=== PATIENT | male | born 1940 | race American Indian/Alaskan Native ===

== ENCOUNTER 2019-08-29 16:08 | Emergency (ER) | payer BC, MEDICARE ==
--- NOTE | 2019-08-29 16:45 | Emergency Department Report ---
ED Neuro Deficit HPI - General Chief Complaint: Neuro Symptoms/Deficit Stated Complaint: POSS STROKE Time Seen by Provider: 08/29/19 16:14 Source: patient Mode of arrival: Ambulatory Limitations: No Limitations - History of Present Illness Initial Comments: [facility] Date of Service: 08/29/2019 16:09:48 Impression: Right Frias's palsy.. The differential diagnosis would be a right [place] stroke although less likely Comments/Sign-Out: 78-year-old male with past medical history significant for seizures and hypertension. He was last known normal when he went to bed at about 11:30 PM last night. When he woke up he realized that his right face was droopy. He had trouble rinsing his mouth as he was drooling. He also had trouble closing the right eye. He did not have any weakness numbness visual deficits or speech problems. There is no change in the taste or hearing. No history of any trauma to the head neck and no history of any recent cough cold of fever. No travel abroad. He denies having any tinnitus or hearing loss. CAT scan of the head is negative. NIH stroke scale is three for the left unilateral facial deficit on the right. He is not a TPA candidate as is outside the window also his symptoms are not suggestive of a stroke. The differential diagnosis would include right Frias's palsy which is more likely and stroke which is less likely. There are no signs of large vessel occlusion to ask for advanced imaging.He cannot have a brain MRI because he has a metal plate in his head from prior trauma. Metrics: Last Known Well: 08/28/2019 23:30:00 [facility] Notification Time: 08/29/2019 16:09:13 Arrival Time: 08/29/2019 16:08:00 Stamp Time: 08/29/2019 16:09:48 Time First Login Attempt: 08/29/2019 16:14:14 Video Start Time: 08/29/2019 16:14:14 Symptoms: Right facial droop NIHSS Start Assessment Time: 08/29/2019 16:26:45 Patient is not a candidate for tPA. Patient was not deemed candidate for tPA thrombolytics because of Last Well Known Above 4.5 Hours. Video End Time: 08/29/2019 16:33:40 CT head showed no acute hemorrhage or acute core infarct. Clinical Presentation is not Suggestive of Large Vessel Occlusive Disease ED Physician notified of diagnostic impression and management plan on 08/29/2019 16:38:50 Our recommendations are outlined below. Recommendations: Activate Stroke Protocol Admission/Order Set Stroke/Telemetry Floor Neuro Checks Bedside Swallow Eval DVT Prophylaxis IV Fluids, Normal Saline Head of Bed Below 30 Degrees Euglycemia and Avoid Hyperthermia (PRN Acetaminophen) Initiate Aspirin 81 MG Daily Acyclovir for 10 days and Medrol Dosepak for one week taper Recommended Scan: Carotid Dopplers Echocardiogram - Transthoracic Echocardiogram Lipid Panel to Be Obtained, if Not Done in the Last 30 Days Therapies: Physical Therapy, Occupational Therapy, Speech Therapy Assessment When Applicable Dysphaghia Screen: Swallow Evaluation, Bedside NPO Until Swallow Evaluation DVT prophylaxis: Choice of Primary Team Disposition: Neurology Follow Up Recommended Sign Out: Discussed with Emergency Department Provider History of Present Illness: Patient is a 78 year old Male. Patient was brought by private transportation with symptoms of Right facial droop 78-year-old male with past medical history significant for seizures and hyperte nsion. He was last known normal when he went to bed at about 11:30 PM last night. When he woke up he realized that his right face was droopy. He had trouble rinsing his mouth as he was drooling. He also had trouble closing the right eye. He did not have any weakness numbness visual deficits or speech problems. There is no change in the taste or hearing. No history of any trauma to the head neck and no history of any recent cough cold of fever. No travel abroad. He denies having any tinnitus or hearing loss. CAT scan of the head is negative. NIH stroke scale is three for the left unilateral facial deficit on the right. He is not a TPA candidate as is outside the window also his symptoms are not suggestive of a stroke. The differential diagnosis would include right Frias's palsy which is more likely and stroke which is less likely. There are no signs of large vessel occlusion to ask for advanced imaging.He cannot have a brain MRI because he has a metal plate in his head from prior trauma. CT head showed no acute hemorrhage or acute core infarct. Last seen normal was beyond 4.5 hours of presentation. There is no history of hemorrhagic complications or intracranial hemorrhage. There is no history of Recent Anticoagulants. There is no history of recent major surgery. There is no history of recent stroke. Examination: 1A: Level of Consciousness - Alert; keenly responsive + 0 1B: Ask Month and Age - Both Questions Right + 0 1C: Blink Eyes & Squeeze Hands - Performs Both Tasks + 0 2: Test Horizontal Extraocular Movements - Normal + 0 3: Test Visual Yuan - No Visual Loss + 0 4: Test Facial Palsy (Use Grimace if Obtunded) - Unilateral Complete paralysis (upper/lower face) + 3 5A: Test Left Arm Motor Drift - No Drift for 10 Seconds + 0 5B: Test Right Arm Motor Drift - No Drift for 10 Seconds + 0 6A: Test Left Leg Motor Drift - No Drift for 5 Seconds + 0 6B: Test Right Leg Motor Drift - No Drift for 5 Seconds + 0 7: Test Limb Ataxia (FNF/Heel-Mayes) - No Ataxia + 0 8: Test Sensation - Normal; No sensory loss + 0 9: Test Language/Aphasia - Normal; No aphasia + 0 10: Test Dysarthria - Normal + 0 11: Test Extinction/Inattention - No abnormality + 0 NIHSS Score: 3 Patient was informed the Neurology Consult would happen via TeleHealth consult by way of interactive audio and video telecommunications and consented to receiving care in this manner. Due to the immediate potential for life-threatening deterioration due to underlying acute neurologic illness, I spent 35 minutes providing critical care. This time includes time for face to face visit via telemedicine, review of medical records, imaging studies and discussion of findings with providers, the patient and/or family. Dr Surya Stewart [facility] Case [id number] - Related Data Home Medications: Home Medications Medication Instructions Recorded Confirmed Last Taken Atorvastatin [Lipitor] 40 mg PO QHS 08/21/13 08/21/13 08/20/13 Lisinopril [Zestril] 40 mg PO DAILY 08/21/13 08/21/13 08/21/13 Losartan [Cozaar] 25 mg PO QDAY 08/21/13 08/21/13 08/21/13 Tamsulosin [Flomax] 0.4 mg PO QDAY 08/21/13 08/21/13 08/21/13 amLODIPine 5 mg PO DAILY 08/21/13 08/21/13 08/21/13 carvediloL [Coreg] 3.125 mg PO QAM 08/21/13 08/21/13 08/21/13 Previous Rx's Medication Instructions Recorded Last Taken Type levETIRAcetam [Keppra TAB] 1,500 mg PO BID 30 Days tablet 08/25/13 Unknown Rx Allergies/Adverse Reactions: Allergies Allergy/AdvReac Type Severity Reaction Status Date / Time morphine AdvReac Nausea Verified 08/21/13 18:35 ED Review of Systems ROS: Stated complaint: POSS STROKE Other details as noted in HPI ED Past Medical Hx - Past Medical History Previous Medical History?: Yes Hx Hypertension: Yes Additional medical history: brain aneurysm repair 1996 - Surgical History Past Surgical History?: Yes Additional Surgical History: prostate and hernia - Social History Smoking Status: Never Smoker Substance Use Type: None - Medications Home Medications: Home Medications Medication Instructions Recorded Confirmed Last Taken Type Atorvastatin [Lipitor] 40 mg PO QHS 08/21/13 08/21/13 08/20/13 History Lisinopril [Zestril] 40 mg PO DAILY 08/21/13 08/21/13 08/21/13 History Losartan [Cozaar] 25 mg PO QDAY 08/21/13 08/21/13 08/21/13 History Tamsulosin [Flomax] 0.4 mg PO QDAY 08/21/13 08/21/13 08/21/13 History amLODIPine 5 mg PO DAILY 08/21/13 08/21/13 08/21/13 History carvediloL [Coreg] 3.125 mg PO QAM 08/21/13 08/21/13 08/21/13 History levETIRAcetam [Keppra TAB] 1,500 mg PO BID 30 Days tablet 08/25/13 Unknown Rx ED Neuro Physical Exam - General Limitations: No Limitations Suspected Stroke: No (bells palsy more likely) - Lab Data Lab Results 08/29/19 Range/Units 16:24 POC Glucose 103 (70-105) Critical care attestation.: If time is entered above; I have spent that time in minutes in the direct care of this critically ill patient, excluding procedure time. ED Disposition Clinical Impression: Right-sided Frias's palsy Disposition: DC-09 OP ADMIT IP TO THIS HOSP Is pt being admited?: Yes Condition: Stable
--- NOTE | 2019-08-29 16:45 | Emergency Department Report ---
HPI - General Chief Complaint: Neuro Symptoms/Deficit Time Seen by Provider: 08/29/19 16:14 - HPI HPI: 78-year-old -Japanese male presents to the emergency department from home, through triage, with with the concern for possible stroke. The patient says that he woke up this morning and noticed that he was having trouble with "the muscles on the right side of my face." He was brushing his teeth and had some difficulty spitting out the remnants. He noticed that "my eye and my mouth were drooping." He thought that this would change when he put his dentures in but it did not. He has some complaints of mild numbness to the right side. 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 He has not taken anything for his symptoms prior to presentation today. ED Past Medical Hx - Past Medical History Previous Medical History?: Yes Hx Hypertension: Yes Additional medical history: brain aneurysm repair 1996 - Surgical History Past Surgical History?: Yes Additional Surgical History: prostate and hernia - Social History Smoking Status: Never Smoker Substance Use Type: None - Medications Home Medications: Home Medications Medication Instructions Recorded Confirmed Last Taken Type Atorvastatin [Lipitor] 40 mg PO QHS 08/21/13 08/21/13 08/20/13 History Lisinopril [Zestril] 40 mg PO DAILY 08/21/13 08/21/13 08/21/13 History Losartan [Cozaar] 25 mg PO QDAY 08/21/13 08/21/13 08/21/13 History Tamsulosin [Flomax] 0.4 mg PO QDAY 08/21/13 08/21/13 08/21/13 History amLODIPine 5 mg PO DAILY 08/21/13 08/21/13 08/21/13 History carvediloL [Coreg] 3.125 mg PO QAM 08/21/13 08/21/13 08/21/13 History levETIRAcetam [Keppra TAB] 1,500 mg PO BID 30 Days tablet 08/25/13 Unknown Rx Prednisone [predniSONE 10 mg 10 mg PO .TAPER #1 tab.ds.pk 08/29/19 Unknown Rx (6-Day Pack, 21 Tabs)] Valacyclovir HCl [Valtrex] 1,000 mg PO TID #21 tablet 08/29/19 Unknown Rx ED Review of Systems ROS: Stated complaint: POSS STROKE Other details as noted in HPI Comment: All other systems reviewed and negative Constitutional: denies: chills, fever Eyes: other (Eye Droop). denies: eye pain, vision change ENT: denies: ear pain Respiratory: denies: cough, shortness of breath Cardiovascular: denies: chest pain, palpitations Gastrointestinal: denies: abdominal pain, vomiting Genitourinary: denies: dysuria, discharge Musculoskeletal: denies: back pain, arthralgia Skin: denies: rash, lesions Neurological: weakness (facial weakness). denies: headache Physical Exam - Physical Exam Physical Exam: GENERAL: The patient is well-developed well-nourished. HENT: Normocephalic. Atraumatic. Patient has moist mucous membranes. EYES: Extraocular motions are intact. Pupils equal reactive to light bilaterally. NECK: Supple. Trachea is midline. CHEST/LUNGS: Clear to auscultation. There is no respiratory distress noted. HEART/CARDIOVASCULAR: Regular. There is no tachycardia. There is no murmur. ABDOMEN: Abdomen is soft, nontender. Patient has normal bowel sounds. There is no abdominal distention. SKIN: Skin is warm and dry. NEURO: The patient is awake, alert, and oriented. The patient is cooperative. There is right-sided facial paresis. He is unable to close his right eyelid. Normal speech. No pronator drift or dysmetria. MUSCULOSKELETAL: There is no tenderness or deformity. There is no limitation range of motion of the extremities. ED Course - Consultations Consultation #1: 08/29/19 20:00 I spoke with the occupational safety and health manager on-call, Dr. Lima, regarding the patient's elevated troponins while being asymptomatic for any chest pain or shortness of breath. We also discussed the patient's EKG. Dr. Lima is in agreement with the patient being safe for discharge home with outpatient follow-up. Consultation #2: The patient was seen by the telemedicine neurologist, Dr. Stewart, immediately after the patient returned from CT scan of his head. She gave him an NIH stroke scale of 3 but has a very high suspicion that the patient has Frias's palsy. 08/29/19 21:52 ED Medical Decision Making - Lab Data Result diagrams: 08/29/19 16:35 08/29/19 16:35 - EKG Data -: EKG Interpreted by Me EKG shows normal: sinus rhythm, axis (Left axis deviation), intervals (Prolonged NC interval), QRS complexes (Right bundle branch block, left anterior fascicular block), ST-T waves Rate: normal - EKG Data When compared to previous EKG there are: previous EKG unavailable Interpretation: other (Sinus rhythm at 73 bpm, prolonged NC interval, right bundle branch block, left anterior fascicular block) - Radiology Data Radiology results: report reviewed CT HEAD WITHOUT CONTRAST INDICATION / CLINICAL INFORMATION: MAIN: CODE STROKE PT neuro deficits <6hrs or sx present upon awakening RT SIDE DROOP . TECHNIQUE: All CT scans at this location are performed using CT dose reduction for ALARA by means of automated exposure control. 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 A single surgical clip is observed near the superior margin of the dorsum sellae. This is unchanged. HEMORRHAGE: No evidence of intracranial hemorrhage or extra-axial fluid collection. EXTRA- AXIAL SPACES: Cortical sulci and sylvian fissures are mildly enlarged reflecting a degree of parenchymal volume loss which is within normal limits for the patient's age 78 years. Basilar cisterns have an unremarkable appearance. VENTRICULAR SYSTEM: The third and lateral ventricles are mildly enlarged reflecting presence of age related parenchymal volume loss. CEREBRAL PARENCHYMA: Periventricular and deep white matter lucency is observed. This is probably secondary to microvascular ischemic change. There is no indication of recent infarction. An area of encephalomalacia is observed in the right frontal lobe secondary to remote brain injury. This is unchanged. MIDLINE SHIFT OR HE RNIATION: There is no mass effect. CEREBELLUM / BRAINSTEM: Brainstem and cerebellum have an unremarkable appearance. INTRACRANIAL VESSELS:Calcified atherosclerotic plaque is present along the course of the cavernous segments of both internal carotid arteries. Similar findings are seen at the distal vertebral arteries. ORBITS: The globes are partially excluded. The visualized portions of the orbits have an unremarkable appearance. SOFT TISSUES of HEAD: No significant abnormality. CALVARIUM: Postoperative changes as described above. PARANASAL SINUSES / MASTOID AIR CELLS: Paranasal sinuses are free from inflammatory mucosal disease. Mastoid air cells are normally pneumatized. IMPRESSION: 1. Status post remote aneurysm surgery. 2. 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 3. No acute intracranial abnormality. - Medical Decision Making This patient presents to the emergency department with the complaint of waking up from sleep with some right-sided facial deficits. He has complete upper and lower right-sided facial paresis. He denies any numbness to the face. There is no involvement of the upper or lower extremities. Altogether this appears most consistent with Frias's palsy. Patient had a stat CT scan of the head after a code stroke was called. CT scan of the head does not show any bleed, shift, mass, ischemia, or any other acute process. Patient was seen by telemedicine neurology who once again feels that these symptoms are consistent with Frias's palsy and recommended prednisone and Valtrex. Patient's EKG showed a prolonged NC interval and some nonspecific T wave inversions or flattened T waves but no morphology consistent with ST elevation OK. Patient's labs were mostly unrem arkable but he did have a troponin come back at 0.056. This lab was ordered through the code stroke protocol but the patient has no complaints of any chest pain, shortness of breath, back pain or any other symptoms not mentioned above. Patient had a consult by the admitting hospitalist, Dr. Frey, who also did not feel that the patient required admission for this asymptomatic elevated troponin level. I got a 2-hour repeat troponin level that once again came back at 0.056. After this, I spoke with the on-call occupational safety and health manager, Dr. Lima, who agrees that the patient appears safe for discharge home and outpatient follow-up with the asymptomatic mild elevation in troponins. I discussed all this with the patient who agrees with the plan for discharge. He will follow-up with neurology, cardiology, primary care. The patient also has been instructed to return to the emergency department immediately with any worsening of his symptoms, new strokelike symptoms, development of chest pain or shortness of breath, or with any acute distress. Critical Care Time: No Critical care attestation.: If time is entered above; I have spent that time in minutes in the direct care of this critically ill patient, excluding procedure time. ED Disposition Clinical Impression: Right-sided Frias's palsy Disposition: DC-01 TO HOME OR SELFCARE Is pt being admited?: No Condition: Stable Instructions: Frias Palsy (ED) Additional Instructions: Please follow-up with your primary care physician in the next few days. I am giving you a referral for a local neurologist, Dr. Aguero, to follow-up regarding the Frias's palsy. I am giving you a referral for a local occupational safety and health manager, Dr. Lima, to follow-up regarding the elevated troponin levels that were found today incidentally. Return to the emergency department immediately with any development of chest pain or shortness of breath, any worsening of your current symptoms, any new strokelike symptoms, or with any acute distress. Take the medications as prescribed. Prescriptions: Prednisone [predniSONE 10 mg (6-Day Pack, 21 Tabs)] 10 mg PO .TAPER #1 tab.ds.pk Valacyclovir HCl [Valtrex] 1,000 mg PO TID #21 tablet Referrals: PRIMARY CAREMD [Primary Care Provider] - 3-5 Days JOSÉ LUIS AGUERO MD [Referring] - 3-5 Days PREM LIMA MD [Staff Physician] - 3-5 Days
[2019-08-29] MEDS ORDERED: predniSONE 20 MG TAB PO ONE (16:50)
[2019-08-29] MEDS ORDERED: ASPIRIN 81 MG TAB CHEW PO ONE ×2 (16:50→17:35)
[2019-08-29] MEDS ORDERED: valACYclovir 500 MG TAB PO ONE (16:50)
--- NOTE | 2019-08-29 16:54 | Cat Scan Report ---
CT HEAD WITHOUT CONTRAST INDICATION / CLINICAL INFORMATION: MAIN: CODE STROKE PT neuro deficits <6hrs or sx present upon awakening RT SIDE DROOP . TECHNIQUE: All CT scans at this location are performed using CT dose reduction for ALARA by means of automated e xposure control. COMPARISON: Head CT 08/22/2013 FINDINGS: Postoperative changes: Patient is status post none parietal craniotomy for surgical treatment of inte rcranial aneurysm. A single surgical clip is observed near the superior margin of the dorsum sellae. This is unchanged. HEMORRHAGE: No evidence of intracranial hemorrhage or extra-axial fluid collection. EXTRA-AXIAL SPACES: Cortical sulci and sylvian fissures are mildly enlarged reflecting a degree of pa renchymal volume loss which is within normal limits for the patient's age 78 years. Basilar cisterns have an unremarkable appearance. VENTRICULAR SYSTEM: The third and lateral ventricles are mildly enlarged reflecting presence of age r elated parenchymal volume loss. CEREBRAL PARENCHYMA: Periventricular and deep white matter lucency is observed. This is probably seco ndary to microvascular ischemic change. There is no indication of recent infarction. An area of encep halomalacia is observed in the right frontal lobe secondary to remote brain injury. This is unchanged . MIDLINE SHIFT OR HERNIATION: There is no mass effect. CEREBELLUM / BRAINSTEM: Brainstem and cerebellum have an unremarkable appearance. INTRACRANIAL VESSELS:Calcified atherosclerotic plaque is present along the course of the cavernous se gments of both internal carotid arteries. Similar findings are seen at the distal vertebral arteries. ORBITS: The globes are partially excluded. The visualized portions of the orbits have an unremarkable appearance. SOFT TISSUES of HEAD: No significant abnormality. CALVARIUM: Postoperative changes as described above. PARANASAL SINUSES / MASTOID AIR CELLS: Paranasal sinuses are free from inflammatory mucosal disease. Mastoid air cells are normally pneumatized. IMPRESSION: 1. Status post remote aneurysm surgery. 2. 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 3. No acute intracranial abnormality. Code stroke patient: I called report of this study to Dr. Eden of the [facility] emergency departme nt at about 1547 Central standard time Signer Name: Andrew Streeter MD Signed: 08/29/2019 4:49 PM Workstation Name: [id number]
[2019-08-29 17:21] LABS: Basophils # (Auto) 0.1 K/mm3 (0.0-0.1); Basophils % (Auto) 1.7 % (0.0-1.8); Eosinophils # (Auto) 0.1 K/mm3 (0.0-0.4); Eosinophils % (Auto) 2.1 % (0.0-4.3); Hematocrit 44.8 % (35.5-45.6); Hemoglobin 15.4 gm/dl (11.8-15.2); Lymphocytes # (Auto) 0.9 K/mm3 (1.2-5.4); Lymphocytes % (Auto) 20.5 % (13.4-35.0); Mean Corpuscular HGB Conc 34 % (32-34); Mean Corpuscular Volume 95 fl (84-94); Monocytes # (Auto) 0.5 K/mm3 (0.0-0.8); Monocytes % (Auto) 10.8 % (0.0-7.3); Platelet Count 168 K/mm3 (140-440); Red Blood Count 4.73 M/mm3 (3.65-5.03); Red Cell Distribution Width 12.9 % (13.2-15.2)
[2019-08-29 17:32] LABS: INR 1.08 (0.87-1.13)
[2019-08-29 17:34] LABS: Partial Thromboplastin Time 24.3 Sec. (24.2-36.6)
[2019-08-29 17:35] LABS: Creatine Kinase MB 15.6 ng/mL (0.0-4.0)
[2019-08-29 17:37] LABS: Alanine Aminotransferase 28 units/L (7-56); Albumin 3.9 g/dL (3.9-5); BUN/Creatinine Ratio 13; Blood Urea Nitrogen 13 mg/dL (9-20); Calcium 9.4 mg/dL (8.4-10.2); Hemolysis Index 9
[2019-08-29 18:01] LABS: Chol/HDL Ratio 2.03 %
[2019-08-29 20:36] VITALS: BP 155/79
[2019-08-29 20:51] LABS: Bacteria,Urine 1+ /HPF (Negative); Bilirubin,Urine NEG (Negative); Blood,Urine NEG (Negative); Color,Urine Yellow (Yellow); Mucus,Urine FEW /HPF; Protein,Urine <15 mg/dL mg/dL (Negative); WBC,Urine < 1.0 /HPF (0.0-6.0)
[2019-08-29 20:57] LABS: Amphetamine Screen,Urine PRESUMPTIVE NEGATIVE; Benzodiazepines Screen,Urine PRESUMPTIVE NEGATIVE; Cannabinoid Screen,Urine PRESUMPTIVE NEGATIVE; Cocaine Screen,Urine PRESUMPTIVE NEGATIVE; Methadone Screen,Urine PRESUMPTIVE NEGATIVE; Opiate Screen,Urine PRESUMPTIVE NEGATIVE
== END 2019-08-29 20:15 | disposition home or self-care (01) ==
LOC: ED 16:08
DX: G51.0 Bell's palsy (principal); I10 Essential (primary) hypertension; Z79.899 Other long term (current) drug therapy; Z88.6 Allergy status to analgesic agent
CPT/HCPCS: 36415; 70450; 80053; 80061; 80307; 81001; 82550; 82553; 82962; 84484; 85025; 85610; 85670; 85730; 93005; 93010; 99284; J7512; 80320; G0480